=== PATIENT | female | born 1995 | race Hispanic/Latino ===

== ENCOUNTER 2021-11-01 14:56 | Outpatient (CLI) | payer BC, OTHER ==
[2021-11-02 09:53] LABS: SARS-CoV-2 PCR by NAA Not Detected (NotDetected)
== END 2021-11-01 14:57 | disposition home or self-care (01) ==
LOC: CSHLAB 14:56
PROVIDERS: ATTEND Obstetrics & Gynecology
DX: Z20.822 Contact with and (suspected) exposure to COVID-19 (principal)
CPT/HCPCS: U0003; U0005

== ENCOUNTER 2021-11-03 05:30 | Inpatient (IN) | payer BC, OTHER ==
[2021-11-03] MEDS ORDERED: Promethazine HCl 25 MG/ML VIAL IM PRN (11:18)
[2021-11-03] MEDS ORDERED: Misoprostol 200 MCG TAB PR PRN (11:18)
[2021-11-03] MEDS ORDERED: hydrALAZINE 20 MG/ML VIAL SLOW IVP PRN (11:18)
[2021-11-03] MEDS ORDERED: Ondansetron PF 4 MG/2 ML Vial IVP PRN (11:18)
[2021-11-03] MEDS ORDERED: Ibuprofen 800 MG TAB PO PRN (11:18)
[2021-11-03] MEDS ORDERED: Carboprost 250 MCG/ML AMP IM PRN (11:18)
[2021-11-03] MEDS ORDERED: Acetaminophen 500 MG TAB PO PRN (11:18)
[2021-11-03] MEDS ORDERED: Lidocaine 1% (PF) 30 ML VIAL SC PRN (11:18)
[2021-11-03] MEDS ORDERED: Methylergonovine 0.2 MG/ML VIAL IM PRN (11:18)
[2021-11-03] MEDS: Lactated Ringer's 1,000 ML IV SCH ×2 (11:30→19:30)
[2021-11-03 11:39] VITALS: BMI 32.5
[2021-11-03 12:10] LABS: Hemoglobin 13.4 g/dL (12.0-15.5); Mean Corpuscular HGB CONC 34.4 g/dL (32.0-36.0); Mean Corpuscular Hemoglobin 30.5 pg (27.0-33.0); Mean Corpuscular Volume 88.6 fl (81.6-98.3); Mean Platelet Volume 11.9 fl (7.4-10.4); Platelet Count 164 10x3/uL (150-450); Red Blood Cell (RBC) Count 4.39 10x6/uL (3.90-5.03); White Blood Cell (WBC) Count 10.6 10x3/uL (3.5-10.5)
[2021-11-03] MEDS: Misoprostol 100 MCG TAB VAG SCH ×2 (12:31→22:57)
[2021-11-03 12:38] LABS: Hep B Surf Ag Non-Reactive S/CO (NonReactive); Syphilis Antibody Nonreactive (Nonreactive); Syphilis Antibody Index 0.05 S/CO (<1.00 Non-Reactive)
[2021-11-03 12:43] LABS: HBSAg Index 0.26 S/CO (0-0.99)
[2021-11-03] MEDS: NS w/ Oxytocin 30 units 500 ML IV SCH (22:45)
[2021-11-04] MEDS: Lactated Ringer's 1,000 ML IV SCH ×2 (02:24→13:06)
[2021-11-04] MEDS ORDERED: Calcium Carbonate 500 MG ChewTAB PO PRN (02:30)
[2021-11-04] MEDS: Misoprostol 100 MCG TAB VAG SCH ×2 (03:52→13:06)
[2021-11-04] MEDS: Butorphanol Tartrate 1 MG/ML VIAL SLOW IVP PRN ×2 (04:35→07:06)
[2021-11-04] MEDS: NS w/ Oxytocin 30 units 500 ML IV SCH (13:07)
[2021-11-04] MEDS ORDERED: Promethazine HCl 25 MG/ML VIAL IM PRN (15:11)
[2021-11-04] MEDS ORDERED: Benzocaine-Menthol 82.5 ML CAN TOP PRN (15:11)
[2021-11-04] MEDS ORDERED: Acetaminophen 325 MG TAB PO PRN (15:11)
[2021-11-04] MEDS ORDERED: Ondansetron PF 4 MG/2 ML Vial IVP PRN (15:11)
[2021-11-04] MEDS ORDERED: Methylergonovine 0.2 MG/ML VIAL IM PRN (15:11)
[2021-11-04] MEDS ORDERED: Bisacodyl 10 MG SUPP PR PRN (15:11)
[2021-11-04] MEDS ORDERED: Misoprostol 200 MCG TAB VAG PRN (15:11)
[2021-11-04] MEDS ORDERED: Boostrix 0.5 ML (Tdap) VIAL IM ONE (15:11)
[2021-11-04] MEDS ORDERED: diphenhydrAMINE 25 MG CAP PO PRN (15:11)
[2021-11-04] MEDS ORDERED: Milk Of Magnesia 30 ML UDCUP PO PRN (15:11)
[2021-11-04] MEDS ORDERED: Lanolin Ointment 7 GM TUBE TOP PRN (15:11)
[2021-11-04] MEDS ORDERED: hydrALAZINE 20 MG/ML VIAL SLOW IVP PRN (15:11)
[2021-11-04] MEDS ORDERED: NS w/ Oxytocin 30 units 500 ML IV SCH (15:11)
[2021-11-04] MEDS ORDERED: Preparation H Ointment 28 GM TUBE PR PRN (15:11)
[2021-11-04] MEDS: Docusate 100 MG CAP PO SCH (21:48)
[2021-11-04] MEDS: Ibuprofen 800 MG TAB PO SCH (21:49)
[2021-11-05] MEDS: Misoprostol 100 MCG TAB VAG SCH (00:02)
[2021-11-05] MEDS: Ferrous Sulfate 325 MG TAB PO SCH ×3 (00:02→18:21)
[2021-11-05] MEDS: Ibuprofen 800 MG TAB PO SCH ×3 (05:09→21:39)
[2021-11-05] MEDS: Prenatal Vitamin 1 TAB PO SCH (08:12)
[2021-11-05] MEDS: Docusate 100 MG CAP PO SCH ×2 (08:12→21:39)
[2021-11-05] MEDS ORDERED: Measles/Mumps/Rubella 10 MCG/0.5 ML VIAL SC ONE (14:45)
[2021-11-06] MEDS: Ibuprofen 800 MG TAB PO SCH (05:22)
[2021-11-06] MEDS: Ferrous Sulfate 325 MG TAB PO SCH (07:10)
[2021-11-06 08:39] VITALS: BP 105/68; TEMP 98
[2021-11-06] MEDS: Prenatal Vitamin 1 TAB PO SCH (08:41)
[2021-11-06] MEDS: Docusate 100 MG CAP PO SCH (08:41)
== END 2021-11-06 13:35 | disposition home or self-care (01) | DRG 807 ==
LOC: CSHLD 10:44 → CSHPP 11-04 15:50
PROVIDERS: ADMIT Emergency Medicine; ATTEND Emergency Medicine
PROC: 10E0XZZ Delivery of Products of Conception, External Approach (ICD-10-PCS; principal; 2021-11-04)
PROC: 0KQM0ZZ Repair Perineum Muscle, Open Approach (ICD-10-PCS; 2021-11-04)
DX: O35.8XX0 Maternal care for other (suspected) fetal abnormality and damage, not applicable or unspecified (principal); Z37.0 Single live birth; Z3A.40 40 weeks gestation of pregnancy; Z23 Encounter for immunization; O70.1 Second degree perineal laceration during delivery
CPT/HCPCS: 36415; 85027; 86780; 86850; 86900; 86901; 87340; J0595; J2001; J2405; J2590; J7120; U0003; U0005